=== PATIENT | male | born 1970 | race Two or more races ===

== ENCOUNTER 2025-02-11 08:18 | Outpatient (CLI) | payer OTHER | END 2025-02-11 08:24 | disposition home or self-care (01) | LOC: SONOGRAMA 08:18 | PROVIDERS: ATTEND Urology | DX: N20.0 Calculus of kidney (principal) ==

== ENCOUNTER 2025-02-16 13:53 | Outpatient (CLI) | payer OTHER ==
[2025-02-16 14:43] LABS: URINE APPEARANCE Clear; URINE BILIRRUBIN Negative (NEGATIVE); URINE BLOOD Negative; URINE COLOR Yellow; URINE GLUCOSE Negative (NEGATIVE); URINE KETONE Negative (NEGATIVE); URINE LEUKOCYTE Negative; URINE NITRATE Negative; URINE PROTEIN Negative (NEGATIVE); URINE UROBILINOGEN 0.2 E.U./dl
[2025-02-16 14:46] LABS: HEMATOCRIT 44.8 % (39.0-48.0); HEMOGLOBIN 14.7 g/dL (13-16.00); MEAN CELL VOLUME 93.1 fL (80.0-100.00); MEAN CORPUSCULAR HEMOGLOBIN 30.6 pg (27.00-32.0); MEAN CORPUSCULAR HGB CONC 32.9 g/dl (32.0-36.0); PLATELET COUNT 230 K/uL (150-450); RED BLOOD COUNT 4.81 M/uL (4.00-6.00); RED CELL DISTRIBUTION WIDTH 13.5 % (11.5-14.5)
[2025-02-16 15:23] LABS: URINE BACTERIA 0 uL (0.0-1933); URINE RBC 1.3 uL (0.0-20.8); URINE WBC 0.3 uL (0.0-23.2)
== END 2025-02-16 13:56 | disposition home or self-care (01) ==
LOC: LAB 13:53
PROVIDERS: ATTEND Urology
DX: R31.21 Asymptomatic microscopic hematuria (principal); D50.9 Iron deficiency anemia, unspecified

== ENCOUNTER 2025-05-13 15:39 | Outpatient (CLI) | payer OTHER | END 2025-05-13 15:41 | disposition home or self-care (01) | LOC: RAD 15:39 | PROVIDERS: ATTEND Neuromusculoskeletal Medicine, Sports Medicine | DX: M25.511 Pain in right shoulder (principal) ==

== ENCOUNTER 2025-05-13 16:12 | Outpatient (CLI) | payer OTHER | END 2025-05-13 16:28 | disposition home or self-care (01) | LOC: LAB 16:12 | PROVIDERS: ATTEND Urology | DX: E29.1 Testicular hypofunction (principal) ==

== ENCOUNTER 2025-05-29 07:41 | Outpatient (CLI) | payer OTHER ==
[2025-05-29 08:50] LABS: BASO % 0.5 % (0.1-1.2); EOS # 0.20 (0.04-0.54); EOS % 5.4 % (0.7-7.0); LYMPH # 1.58 (1.18-3.74); LYMPH % 42.4 % (19.3-53.1); MEAN PLATELET VOLUME 9.20 fl (9.4-12.4); MONO # 0.29 (0.24-0.82); MONO % 7.8 % (4.7-12.5); NEUT # 1.63 (1.56-6.13); NEUT % 43.6 % (34.0-71.1); RED CELL DISTRIBUTION WIDTH 12.6 % (11.6-14.4)
[2025-05-29 08:54] LABS: URINE APPEARANCE Clear; URINE BILIRRUBIN Negative (NEGATIVE); URINE BLOOD Negative; URINE COLOR Yellow; URINE GLUCOSE Negative (NEGATIVE); URINE KETONE Negative (NEGATIVE); URINE LEUKOCYTE Negative; URINE NITRATE Negative; URINE PROTEIN Negative (NEGATIVE); URINE UROBILINOGEN 0.2 E.U./dl
[2025-05-29 08:58] LABS: URINE RBC 9.2 uL (0.0-20.8)
[2025-05-29 09:07] LABS: URINE BACTERIA 1.2 uL (0.0-1933); URINE EPITHELIAL CELLS 0.6 uL (0.0-38.8); URINE WBC 1.2 uL (0.0-23.2)
[2025-05-29 09:08] LABS: URINE CAST 0.00 uL (0.0-1.40)
[2025-05-29 09:51] LABS: ALT/SGPT 37.0 U/L (12-78); AST/SGOT 29.0 U/L (15-37); BILIRUBIN TOTAL 0.74 mg/dL (0.3-1.2); BUN CREA RATIO 18.0 (7.0-25.0); CHOL HDL RATIO 3.8 (0-5.0); CREATININE SERUM 0.87 mg/dL (0.70-1.30); GFR 91.44; GLOBULINA 3.2 G/DL (2.4-3.5); GLUCOSE FASTING 87.0 mg/dL (65-100); HDL 57.0 mg/dl (40-60); LDL 139.0 mg/dl (0-130); OSMOLALITY SERUM 286.0 MOSM/KG (275-295); PROSTATIC SPECIFIC ANTIGEN 0.542 NG/ML (0.010-4.00); T4 FREE 0.93 NG/ML (0.76-1.46); TSH 1.42 uIU/mL (0.358-3.74); VLDL 18.0 (0-39)
== END 2025-05-29 08:54 | disposition home or self-care (01) ==
LOC: LAB 07:41
PROVIDERS: ATTEND General Practice
DX: E55.9 Vitamin D deficiency, unspecified (principal); E78.01 Familial hypercholesterolemia; E11.9 Type 2 diabetes mellitus without complications; D64.9 Anemia, unspecified; N39.0 Urinary tract infection, site not specified; I10 Essential (primary) hypertension; N40.0 Benign prostatic hyperplasia without lower urinary tract symptoms

== ENCOUNTER 2025-08-05 07:33 | Outpatient (CLI) | payer OTHER | END 2025-08-05 07:42 | disposition home or self-care (01) | LOC: SONOGRAMA 07:33 | PROVIDERS: ATTEND Urology | DX: N52.9 Male erectile dysfunction, unspecified (principal); E29.1 Testicular hypofunction; N50.9 Disorder of male genital organs, unspecified ==

== ENCOUNTER → 2025-08-05 08:25 | Outpatient (CLI) | payer OTHER ==
[2025-08-06 09:08] LABS: LEUTEINIZING HORMONE 2.2 mIU/mL (1.7-8.6); PROLACTIN 8.9 ng/mL (3.6-25.2)
== END | disposition home or self-care (01) ==
LOC: LAB 08:25
PROVIDERS: ATTEND Urology
DX: E29.1 Testicular hypofunction (principal)